=== PATIENT | female | born 1960 | race Hispanic/Latino ===

== ENCOUNTER 2024-07-31 13:54 | Outpatient (CLI) | payer OTHER | END 2024-07-31 13:55 | disposition home or self-care (01) | LOC: BICMAMMO 13:54 | PROVIDERS: ATTEND Nurse Practitioner Family | DX: N63.20 Unspecified lump in the left breast, unspecified quadrant (principal) | CPT/HCPCS: 77066; G0279 ==

== ENCOUNTER 2024-08-25 21:57 | Observation (INO) | payer OTHER ==
[2024-08-25 22:22] LABS: #Basophils 0.06 10x3/uL (0.0-0.2); %Basophils 0.8 % (0.0-1.0); %Eosinophils 1.8 % (0.0-10.0); %Lymphocytes 36.6 % (21.0-51.0); %Monocytes 9.1 % (0.0-10.0); %Neutrophils 51.6 % (42.0-75.0); Hemoglobin 13.7 g/dL (12.0-16.0); Mean Corpuscular HGB CONC 34.3 g/dL (32.0-36.0); Mean Corpuscular Hemoglobin 30.9 pg (27.0-31.0); Mean Corpuscular Volume 90.1 fL (78.0-98.0); Mean Platelet Volume 9.5 fL (7.4-10.4); Platelet Count 301 10x3/uL (130-400); Red Blood Cell (RBC) Count 4.44 mill/uL (4.20-5.40)
[2024-08-25] MEDS ORDERED: Nitroglycerin 0.4 MG TAB 1 EACH ONE (22:28)
[2024-08-25] MEDS ORDERED: Aspirin Chewable 81 MG TAB ONE (22:28)
[2024-08-25 22:43] LABS: Troponin I Less than 0.010 ng/mL (< 0.028)
[2024-08-25 22:47] LABS: ALT (SGPT) 14 U/L (8-55); AST (SGOT) 19 U/L (5-34); Albumin 4.1 g/dL (3.4-4.8); Alkaline Phosphatase 98 U/L (40-110); Anion Gap 15 mmol/L (10-20); BUN (Urea Nitrogen) 22 mg/dL (9.8-20.1); Bilirubin, Total 0.2 mg/dL (0.2-1.2); Calc. Creatinine Clearance 0 mL/min (70-130); Calcium 9.4 mg/dL (7.8-10.44); Carbon Dioxide 23 mmol/L (23-31); Chloride 105 mmol/L (98-107); Estimated GFR 82; Glucose 107 mg/dL (80-115); Protein, Total 7.1 g/dL (5.8-8.1); Sodium 139 mmol/L (136-145)
[2024-08-26] MEDS ORDERED: Nitroglycerin 0.4 MG TAB (25 Tab Bottle) SL PRN (01:32)
[2024-08-26] MEDS ORDERED: Ibuprofen 200 MG TAB PO PRN (01:33)
[2024-08-26] MEDS ORDERED: Benzocaine/Menthol 1 LOZ LOZ PO PRN (01:33)
[2024-08-26] MEDS ORDERED: Calcium Carbonate 500 MG ChewTAB PO PRN (01:33)
[2024-08-26] MEDS ORDERED: Acetaminophen 500 MG TAB PO PRN ×2 (01:33)
[2024-08-26] MEDS ORDERED: Ondansetron ODT 4 MG TAB PO PRN (01:33)
[2024-08-26] MEDS ORDERED: Artificial Tear Ophth Sol 15 ML BOT EA EYE PRN (01:33)
[2024-08-26] MEDS ORDERED: Senokot S 8.6-50 MG TAB PO PRN (01:33)
[2024-08-26] MEDS ORDERED: GUAIFENESIN SF SOLN 200 MG/10 ML UDCUP PO PRN (01:33)
[2024-08-26] MEDS ORDERED: Ondansetron PF 4 MG/2 ML Vial IVP PRN (01:33)
[2024-08-26 03:09] VITALS: BMI 24.0
[2024-08-26] MEDS: Lidocaine 2% Viscous Solution 10 ML, Aluminum & Magnesium Hydroxide 30 ML SSW SCH (03:12)
[2024-08-26 04:49] LABS: #Basophils 0.04 10x3/uL (0.0-0.2); %Basophils 0.5 % (0.0-1.0); %Eosinophils 0.8 % (0.0-10.0); %Lymphocytes 30.8 % (21.0-51.0); %Monocytes 7.8 % (0.0-10.0); Hematocrit 38.9 % (36.0-47.0); Hemoglobin 13.4 g/dL (12.0-16.0); Mean Corpuscular HGB CONC 34.4 g/dL (32.0-36.0); Mean Corpuscular Hemoglobin 30.9 pg (27.0-31.0); Mean Corpuscular Volume 89.8 fL (78.0-98.0); Mean Platelet Volume 9.7 fL (7.4-10.4); Platelet Count 291 10x3/uL (130-400); RBC Distribution Width 13.1 % (11.5-14.5); Red Blood Cell (RBC) Count 4.33 mill/uL (4.20-5.40)
[2024-08-26 05:08] LABS: Cardiac Risk 2.5 (Less than 4.5)
[2024-08-26 05:11] LABS: Troponin I Less than 0.010 ng/mL (< 0.028)
[2024-08-26 06:12] LABS: Troponin I Less than 0.010 ng/mL (< 0.028)
[2024-08-26] MEDS: Acetaminophen 325 MG TAB PO SCH (06:23)
[2024-08-26] MEDS: Aspirin Chewable 81 MG TAB PO SCH (09:43)
[2024-08-27] MEDS ORDERED: Regadenoson 0.4 MG/5 ML SYRINGE ONE (10:33)
[2024-08-27 15:19] VITALS: BP 108/64; TEMP 98.3
== END 2024-08-27 17:39 | disposition home or self-care (01) ==
LOC: ERS 21:57 → OBS 08-26 02:01
PROVIDERS: ADMIT Student in an Organized Health Care Education/Training Program; ATTEND Internal Medicine
DX: R07.89 Other chest pain (principal); Z90.710 Acquired absence of both cervix and uterus; Z90.89 Acquired absence of other organs; Z98.51 Tubal ligation status; Z79.899 Other long term (current) drug therapy
CPT/HCPCS: 36415; 71045; 78452; 80053; 80061; 83880; 84484; 85025; 85379; 93005; 93017; 94760; A9502; G0378; J2785